=== PATIENT | male | born 1945 | race Caucasian/White ===

== ENCOUNTER 2020-07-31 02:11 | Emergency (ER) | payer BC ==
[2020-07-31 03:05] LABS: Urine Blood 3+ (NEG); Urine Glucose NEGATIVE (NEG); Urine Protein 2+ (NEG); Urine Specific Gravity 1.015 (1.005-1.030); Urine pH 5.5 (5.0-7.0)
[2020-07-31 03:17] LABS: Absolute Lymphocytes (CBC) 1.2 K/uL (0.7-4.9); Basophils % 0.4 % (0-1.3); Lymphocytes % 7.7 % (15.3-44.8); RBC Red Blood Cell Count 6.88 M/uL (4.33-5.43)
[2020-07-31 03:24] LABS: Hematocrit 61.3 % (39.6-49.0)
[2020-07-31 03:30] LABS: Protime INR 1.04
[2020-07-31 04:02] LABS: ALT/SGPT 35 U/L (12-78); AST/SGOT 29 U/L (15-37); Albumin 3.7 g/dL (3.4-5.0); BUN Blood Urea Nitrogen 18 mg/dL (7-18); Bicarbonate 24 mmol/L (21-32); Bilirubin Direct 0.3 mg/dL (0-0.2); Glucose Level 127 mg/dL (74-106); Lipase 123 U/L (73-393); Protein, Total 7.6 g/dL (6.4-8.2); Sodium Level 139 mmol/L (136-145)
[2020-07-31 04:03] LABS: Alkaline Phosphatase ND U/L (45-117)
[2020-07-31] MEDS ORDERED: NA CHLORIDE 0.9% 1,000 ML ONE (04:32)
--- NOTE | 2020-07-31 05:25 | ER ---
Nurse's Notes [facility] Name: Mendoza Rivero Age: 74 yrs Sex: Male : 1945 Arrival Date: 07/31/2020 Time: 02:13 Bed 13 Private MD: Diagnosis: Urinary Retention;Ureterolithisis Presentation: 07/31 02:41 Chief complaint: Patient states: i am unable to urinate since afternoon. i have severe mg2 suprapubic and back pain. Coronavirus screen: Client denies travel out of the [place] in the last 14 days. At this time, the client does not indicate any symptoms associated with coronavirus-19. Ebola Screen: No symptoms or risks identified at this time. Initial Sepsis Screen: Does the patient meet any 2 criteria? No. Patient's initial sepsis screen is negative. Does the patient have a suspected source of infection? No. Patient's initial sepsis screen is negative. Risk Assessment: Do you want to hurt yourself or someone else? Patient reports no desire to harm self or others. Onset of symptoms was July 30, 2020. 02:41 Method Of Arrival: Wheelchair mg2 02:41 Acuity: CASIMIRO 4 mg2 Historical: - Allergies: 02:43 No Known Allergies; mg2 - Home Meds: 02:43 statins [Active]; flomax [Active]; mg2 - PMHx: 02:43 High Cholesterol; mg2 - PSHx: 02:43 None; mg2 - Immunization history:: Flu vaccine status is unknown. - Social history:: Smoking status: Patient denies any tobacco usage or history of. Patient/guardian denies using street drugs, IV drugs. Screenin:06 Abuse screen: Denies threats or abuse. Denies injuries from another. Nutritional rr5 screening: No deficits noted. Tuberculosis screening: No symptoms or risk factors identified. Fall Risk IV access (20 points). Total Bustamante Fall Scale indicates No Risk (0-24 pts). Assessment: 03:02 General: Appears uncomfortable, Behavior is cooperative. Pain: Complains of pain in mg2 back and abdomen. Neuro: Level of Consciousness is awake, alert, obeys commands, Oriented to person, place, time, situation. Cardiovascular: Capillary refill < 3 seconds Patient's skin is warm and dry. Respiratory: Airway is patent Respiratory effort is even, unlabored, Respiratory pattern is regular, symmetrical. GI: Reports lower abdominal pain. : Sánchez in place Urine is blood tinged, Reports pain in lower back. EENT: No signs and/or symptoms were reported regarding the EENT system. Derm: Skin is intact, is healthy with good turgor, Skin is pink, warm \T\ dry. normal. Musculoskeletal: Circulation, motion, and sensation intact. Capillary refill < 3 seconds. 04:18 Reassessment: Patient appears in no apparent distress at this time. Patient and/or mg2 family updated on plan of care and expected duration. Pain level reassessed. Patient is alert, oriented x 3, equal unlabored respirations, skin warm/dry/pink. Patient denies pain at this time. Patient states feeling better. 05:20 Reassessment: FC leg bag attached to the patient and he must ff-up with his urologist mg2 as soon as he can,. Vital Signs: 02:41 Pulse 77; Resp 18; Temp 98; Pulse Ox 100% on R/A; Weight 104.33 kg; Height 6 ft. 1 in. mg2 (185.42 cm); Pain 10/10; 03:15 BP 175 / 69; mg2 04:18 Pulse 60; Resp 18; Pulse Ox 100% on R/A; Pain 0/10; mg2 05:34 BP 157 / 60; Pulse 64; Resp 18; Temp 98; Pulse Ox 100% on R/A; Pain 0/10; mg2 02:41 Body Mass Index 30.34 (104.33 kg, 185.42 cm) mg2 ED Course: 02:13 Patient arrived in ED. cl3 02:35 Dhiraj Wallace, KYLEE is Primary Nurse. mg2 02:42 Triage completed. mg2 02:43 Bebo Greco MD is Attending Physician. mh7 02:43 Arm band placed on. mg2 02:59 Urine collected: Sánchez catheter specimen, clear, Bladder scan completed. 899. Sánchez rr5 cath inserted, using sterile technique, 16 Fr., by wi, balloon inflated, to gravity drainage, urine specimen collected. 03:05 Inserted saline lock: 20 gauge in right antecubital area, using aseptic technique. rr5 Blood collected. 03:06 Patient has correct armband on for positive identification. Bed in low position. Call rr5 light in reach. Pulse ox on. NIBP on. 03:37 CT Stone Protocol In Process Unspecified. EDMS 04:18 No provider procedures requiring assistance completed. mg2 05:20 IV discontinued, intact, bleeding controlled, No redness/swelling at site. Pressure mg2 dressing applied. 05:23 Mir Mccord MD is Referral Physician. 7 Administered Medications: 04:14 Drug: NS 0.9% 1000 ml Route: IV; Rate: 1000 ml; Site: right antecubital; mg2 05:11 Follow up: Response: No adverse reaction; IV Status: Completed infusion; IV Intake: mg2 1000ml Intake: 05:11 IV: 1000ml; Total: 1000ml. mg2 05:22 IV: 1000ml; Total: 2000ml. mg2 Output: 05:22 Urine: 2000ml (Sánchez); Total: 2000ml. mg2 Outcome: 05:24 Discharge ordered by . 7 05:34 Discharged to home ambulatory. mg2 05:34 Condition: improved 05:34 Discharge instructions given to patient, Instructed on discharge instructions, follow up and referral plans. medication usage, Demonstrated understanding of instructions, follow-up care, medications, Prescriptions given X 2. 05:35 Patient left the ED. mg2 Signatures: Dispatcher [employer] EDMS Dhiraj Wallace RN RN mg2 Omid Anderson RN RN rr5 Bruno Li cl3 Bebo Greco MD MD 7 Corrections: (The following items were deleted from the chart) 05:22 04:18 Urine 1500, (Sánchez), Output Total 1500. mg2 mg2 05:22 05:21 Urine 2000, (Sánchez), Output Total 2000. mg2 mg2
--- NOTE | 2020-07-31 05:25 | EDPHYS ---
Physician Documentation [facility] Name: Mendoza Rivero Age: 74 yrs Sex: Male : 1945 Arrival Date: 07/31/2020 Time: 02:13 Bed 13 Private MD: ED Physician Bebo Greco HPI: 07/31 03:57 This 74 yrs old Male presents to ER via Wheelchair with complaints of Urinary Problem. mh7 03:57 The patient presents with urinary symptoms, retention. Onset: The symptoms/episode mh7 began/occurred yesterday. Modifying factors: The symptoms are alleviated by nothing, the symptoms are aggravated by nothing. 03:57 Associated signs and symptoms: Pertinent positives: abdominal pain, Pertinent mh7 negatives: constipation, diarrhea, dysuria, fever, hematuria, nausea, vomiting. Severity of symptoms: At their worst the symptoms were moderate, last night, in the emergency department the symptoms are unchanged. Historical: - Allergies: 02:43 No Known Allergies; mg2 - Home Meds: 02:43 statins [Active]; flomax [Active]; mg2 - PMHx: 02:43 High Cholesterol; mg2 - PSHx: 02:43 None; mg2 - Immunization history:: Flu vaccine status is unknown. - Social history:: Smoking status: Patient denies any tobacco usage or history of. Patient/guardian denies using street drugs, IV drugs. ROS: 03:57 Constitutional: Negative for fever, chills, and weight loss, Eyes: Negative for injury, mh7 pain, redness, and discharge, ENT: Negative for injury, pain, and discharge, Neck: Negative for injury, pain, and swelling, Cardiovascular: Negative for chest pain, palpitations, and edema, Respiratory: Negative for shortness of breath, cough, wheezing, and pleuritic chest pain, : Negative for injury, bleeding, discharge, and swelling, MS/Extremity: Negative for injury and deformity, Skin: Negative for injury, rash, and discoloration, Neuro: Negative for headache, weakness, numbness, tingling, and seizure, Psych: Negative for depression, anxiety, suicide ideation, homicidal ideation, and hallucinations, Allergy/Immunology: Negative for hives, rash, and allergies, Endocrine: Negative for neck swelling, polydipsia, polyuria, polyphagia, and marked weight changes, Hematologic/Lymphatic: Negative for swollen nodes, abnormal bleeding, and unusual bruising. Exam: 03:57 Constitutional: This is a well developed, well nourished patient who is awake, alert, mh7 and in no acute distress. Head/Face: Normocephalic, atraumatic. Eyes: Pupils equal round and reactive to light, extra-ocular motions intact. Lids and lashes normal. Conjunctiva and sclera are non-icteric and not injected. Cornea within normal limits. Periorbital areas with no swelling, redness, or edema. Neck: Trachea midline, no thyromegaly or masses palpated, and no cervical lymphadenopathy. Supple, full range of motion without nuchal rigidity, or vertebral point tenderness. No Meningismus. Chest/axilla: Normal chest wall appearance and motion. Nontender with no deformity. No lesions are appreciated. Cardiovascular: Regular rate and rhythm with a normal S1 and S2. No gallops, murmurs, or rubs. Normal PMI, no JVD. No pulse deficits. Respiratory: Lungs have equal breath sounds bilaterally, clear to auscultation and percussion. No rales, rhonchi or wheezes noted. No increased work of breathing, no retractions or nasal flaring. Abdomen/GI: Soft, non-tender, with normal bowel sounds. No distension or tympany. No guarding or rebound. No evidence of tenderness throughout. Back: No spinal tenderness. No costovertebral tenderness. Full range of motion. Male : Normal genitalia with no discharge or lesions. Skin: Warm, dry with normal turgor. Normal color with no rashes, no lesions, and no evidence of cellulitis. MS/ Extremity: Pulses equal, no cyanosis. Neurovascular intact. Full, normal range of motion. Neuro: Awake and alert, GCS 15, oriented to person, place, time, and situation. Cranial nerves II-XII grossly intact. Motor strength 5/5 in all extremities. Sensory grossly intact. Cerebellar exam normal. Normal gait. Psych: Awake, alert, with orientation to person, place and time. Behavior, mood, and affect are within normal limits. Vital Signs: 02:41 Pulse 77; Resp 18; Temp 98; Pulse Ox 100% on R/A; Weight 104.33 kg; Height 6 ft. 1 in. mg2 (185.42 cm); Pain 10/10; 03:15 BP 175 / 69; mg2 04:18 Pulse 60; Resp 18; Pulse Ox 100% on R/A; Pain 0/10; mg2 05:34 BP 157 / 60; Pulse 64; Resp 18; Temp 98; Pulse Ox 100% on R/A; Pain 0/10; mg2 02:41 Body Mass Index 30.34 (104.33 kg, 185.42 cm) mg2 MDM: 05:21 Differential diagnosis: nonspecific abdominal pain, UTI, urinary retention, urethritis, mh7 Ureterolithisis. Data reviewed: vital signs, nurses notes, lab test result(s), CBC, electrolytes, urinalysis, radiologic studies, CT scan. Data interpreted: Pulse oximetry: on room air is 100 %. Interpretation: normal. Counseling: I had a detailed discussion with the patient and/or guardian regarding: the historical points, exam findings, and any diagnostic results supporting the discharge/admit diagnosis, the presence of at least one elevated blood pressure reading (>120/80) during this emergency department visit, lab results, radiology results, the need for outpatient follow up, a urologist, to return to the emergency department if symptoms worsen or persist or if there are any questions or concerns that arise at home. Response to treatment: the patient's symptoms have resolved after treatment, the patient's blood pressure is in an acceptable range, mental status has returned to baseline, the patient no longer shows bradycardia, the patient is not short of breath, the patient is not tachycardic, the patient's pain is gone, the patient's temperature has normalized. 05:24 Patient medically screened. [facility] 07/31 03:01 Order name: Urine Dipstick--Ancillary (enter results); Complete Time: 04:15 [facility] 07/31 03:02 Order name: Basic Metabolic Panel; Complete Time: 04:15 [facility] [place] 03:02 Order name: CBC with Diff; Complete Time: 04:15 [facility] 07/[place] 03:02 Order name: Hepatic Function; Complete Time: 04:15 [facility] 07/[place] 03:02 Order name: Lipase; Complete Time: 04:15 [facility] 07/[place] 03:08 Order name: Protime (+inr); Complete Time: 04:15 [facility] 07/31 03:08 Order name: Ptt, Activated; Complete Time: 04:15 [facility] 07/31 03:16 Order name: Basic Metabolic Panel rr5 07/31 03:16 Order name: CBC with Diff rr5 07/31 03:16 Order name: Hepatic Function rr5 07/31 03:16 Order name: Lipase rr5 07/31 03:02 Order name: IV Saline Lock; Complete Time: 03:02 mg2 07/31 03:02 Order name: Labs collected and sent; Complete Time: 03:02 mg2 07/31 03:02 Order name: Urine Dipstick-Ancillary (obtain specimen); Complete Time: 03:02 mg2 07/31 03:02 Order name: Sánchez; Complete Time: 03:02 mg2 07/31 03:02 Order name: Bladder Scanner; Complete Time: 03:02 mg2 07/31 03:09 Order name: CT Stone Protocol [facility] Administered Medications: 04:14 Drug: NS 0.9% 1000 ml Route: IV; Rate: 1000 ml; Site: right antecubital; mg2 05:11 Follow up: Response: No adverse reaction; IV Status: Completed infusion; IV Intake: mg2 1000ml Disposition: 07/31/20 05:24 Discharged to Home. Impression: Urinary Retention, Ureterolithisis. - Condition is Stable. - Discharge Instructions: Kidney Stones, [id number], Acute Urinary Retention, Male, [id number], Sánchez Catheter Care, Adult, [id number]. - Prescriptions for Tylenol- Codeine #3 300-30 mg Oral Tablet - take 1 tablet by ORAL route every 6 hours As needed; 15 tablet. Flomax 0.4 mg Oral Capsule, Sust. Release 24 hr - take 1 capsule by ORAL route once daily 1/2 hour following the same meal each day; 10 capsule. - Medication Reconciliation Form, Thank You Letter, Antibiotic Education, Prescription Opioid Use form. - Follow up: Private Physician; When: 1 - 2 days; Reason: Worsening of condition, Recheck today's complaints, Continuance of care, Re-evaluation by your physician. Follow up: Mir Mccord MD; When: 1 - 2 days; Reason: Worsening of condition, Recheck today's complaints. - Problem is new. - Symptoms have improved. Signatures: Dispatcher [employer] EDME Dhiraj Wallace RN RN mg2 Omid Anderson RN RN rr5 Bebo Greco MD MD 7 Corrections: (The following items were deleted from the chart) 03:18 03:16 IV Saline Lock ordered. rr5 mg2 03:18 03:16 Labs collected and sent ordered. rr5 mg2 04:04 03:17 Basic Metabolic Panel ordered. [facility] EDMS 04:04 03:17 CBC with Automated Diff ordered. [facility] EDMS 04:04 03:17 Liver (Hepatic) Function ordered. [facility] EDMS 04:04 03:17 Lipase ordered. [facility] EDMS 05:35 05:24 07/31/2020 05:24 Discharged to Home. Impression: Urinary Retention; mg2 Ureterolithisis. Condition is Stable. Forms are Medication Reconciliation Form, Thank You Letter, Antibiotic Education, Prescription Opioid Use. Follow up: Private Physician; When: 1 - 2 days; Reason: Worsening of condition, Recheck today's complaints, Continuance of care, Re-evaluation by your physician. Follow up: Mir Mccord; When: 1 - 2 days; Reason: Worsening of condition, Recheck today's complaints. Problem is new. Symptoms have improved. mh7
[2020-07-31 05:42] VITALS: TEMP 98; O2SAT 100
[2020-07-31 05:46] VITALS: BP 157/60
--- NOTE | 2020-07-31 13:41 | RAD REPORT ---
EXAM DESCRIPTION: CT - Stone Protocol - 07/31/2020 6:45 am CLINICAL HISTORY: Abd pain;Flank pain COMPARISON: None Available. TECHNIQUE: CT of the abdomen and pelvis without IV contrast. Evaluation of the solid organs and vasc ulature is suboptimal due to lack of IV contrast. This exam was performed according to our department al dose-optimization program, which includes automated exposure control, adjustment of the mA and/or kV according to patient size and/or use of iterative reconstruction technique. FINDINGS: Lung Bases: Minimal bilateral dependent atelectasis. Bones: Degenerative endplate spondylosis and facet arthropathy throughout the spine. Disc height narr owing at L5/S1. Abdomen: Liver: The liver has normal size and decreased density. Gallbladder: No calcified gallstones. Spleen, Pancreas, and Adrenal Glands: The spleen, pancreas, and adrenal glands are unremarkable. Kidneys: There is a 0.7 cm obstructing calculus in the distal left ureter. Mild left-sided hydronephr osis. Large bilateral renal cysts, largest arising from the inferior pole right kidney measures 8.2 c m. Calcification involving the left renal cortex. Vasculature: Aortoiliac atherosclerosis. IVC is unremarkable. Stomach: The stomach and duodenum have normal course. Other: No free intraperitoneal air. No free fluid or lymphadenopathy. Pelvis: Bladder: Sánchez catheter in a decompressed urinary bladder. Fat stranding adjacent to the urinary bl adder. Bowel: No dilated loops of large or small bowel. Appendix: Normal appendix. Pelvis: Enlarged prostate. IMPRESSION: 1. There is a 0.7 cm obstructing calculus in the distal left ureter. Mild left-sided h ydronephrosis. 2. Fat stranding adjacent to the urinary bladder. This could be seen with cystitis. 3. Enlarged prostate. 4. Hepatic steatosis. Electronically signed by: Angel Hodge 07/31/2020 4:02 AM CDT Due to temporary technical issues with the PACS/Fluency reporting system, reports are being signed by the in house radiologists without review as a courtesy to insure prompt reporting. The interpreting radiologist is fully responsible for the content of the report.
== END 2020-07-31 05:35 | disposition home or self-care (01) ==
LOC: ER 02:11
DX: N20.1 Calculus of ureter (principal); R33.9 Retention of urine, unspecified; E78.00 Pure hypercholesterolemia, unspecified
CPT/HCPCS: 85025; 80048; 36415; 85610; 80076; 85730; 81003; 83690; 76377; 74176; 51702; 96360; 99284; J7030